=== PATIENT | male | born 1975 | race Asian ===

== ENCOUNTER 2016-08-31 05:30 | Inpatient (IN) | payer OTHER ==
[2016-08-28 11:27] VITALS: BMI 31.6
[2016-08-31] VITALS (20 sets, daily range): BP systolic 113–150; BP diastolic 58–86; PULSE 58–90; RESP 14–22; Ht 177.8 cm; Wt 100.3 kg
[~2016-08-31] VITALS: Ht 177.8 cm; Wt 100.3 kg
[~2016-08-31 05:30] MED LIST: CEFAZOLIN 2 GM/50 ML (PMX) 50 ML IVPB ONE; FAMO-18 PO; HYD25 PO; HYDR-3498 PO; LEVO100T87 PO; LOSA50TA6 PO; OXYC-281 PO; PANT40TA3 PO
[2016-08-31] MEDS ORDERED: GELATIN SIZE 100 SPONGE ONE (06:40)
[2016-08-31] MEDS ORDERED: BUPIVACAINE 0.25% (MPF) 30 ML INJ ONE (06:41)
[2016-08-31] MEDS ORDERED: THROMBIN 5000 UNIT VIAL ONE (06:41)
[2016-08-31] MEDS ORDERED: POLYMYXIN/BACITRACIN 1L IRRIG ONE (06:41)
[2016-08-31] MEDS ORDERED: LEVO125T75 PO (06:44)
--- NOTE | 2016-08-31 06:54 | HPN ---
Date/Time of Note Date/Time of Note DATE: 08/31/16 TIME: 06:54 Interval H&P Admission Note Pt. seen H&P reviewed: No system changes APOLONIA ARNDT MD August 31, 2016 06:54
[2016-08-31] MEDS ORDERED: BUPIVACAINE 0.25% (MPF) 10 ML 10 ML VIAL ONE (06:57)
[2016-08-31] MEDS ORDERED: ROCURONIUM 50 MG INJ ONE (07:05)
[2016-08-31] MEDS ORDERED: MIDAZOLAM 1 MG/ML 2 ML INJ ONE (07:05)
[2016-08-31] MEDS ORDERED: LIDOCAINE 2% (SDV) 5 ML INJ ONE (07:05)
[2016-08-31] MEDS ORDERED: PROPOFOL 20 ML ONE ×2 (07:05→07:46)
[2016-08-31] MEDS ORDERED: SUCCINYLCHOLINE CHLORIDE 100 MG/5 ML SYG IV ONE (07:05)
[2016-08-31] MEDS ORDERED: FAMOTIDINE 20 MG INJ ONE (07:46)
[2016-08-31] MEDS ORDERED: METOCLOPRAMIDE 10 MG INJ ONE (07:46)
[2016-08-31] MEDS ORDERED: ONDANSETRON 4 MG INJ ONE (07:46)
[2016-08-31] MEDS ORDERED: DEXAMETHASONE 4 MG/ML 1 ML INJ ONE (07:46)
[2016-08-31] MEDS ORDERED: HYDROmorphONE 2 MG/ML SYG ONE (07:48)
[2016-08-31] MEDS ORDERED: PHENYLephrine (100 MCG/ML) 5ML SYG ONE (07:53)
[2016-08-31] MEDS ORDERED: GLYCOPYRROLATE 0.4 MG INJ ONE ×2 (08:27)
[2016-08-31] MEDS ORDERED: NEOSTIGMINE 3 MG/3 ML SYRINGE ONE (08:27)
[2016-08-31] MEDS ORDERED: FENTAnyl 50 MCG/ML VIAL IV PRN ×3 (08:30)
[2016-08-31] MEDS ORDERED: DIPHENHYDRAMINE 50 MG INJ IV PRN (08:30)
[2016-08-31] MEDS ORDERED: HYDROmorphONE (0.2 MG/ML) 10ML SYG IV PRN ×3 (08:30)
[2016-08-31] MEDS ORDERED: PROCHLORPERAZINE 10 MG INJ IV PRN (08:30)
[2016-08-31] MEDS ORDERED: ONDANSETRON 4 MG INJ IV PRN ×2 (08:30→09:00)
[2016-08-31] MEDS ORDERED: MEPERIDINE 25 MG INJ IV PRN (08:30)
[2016-08-31] MEDS: LACTATED RINGER'S 1,000 ML IV* ONE ×2 (08:47)
--- NOTE | 2016-08-31 08:58 | OPR ---
Date/Time of Note Date/Time of Note DATE: 08/31/16 TIME: 08:54 Operative Report Preoperative Diagnosis Herniated lumbar disc L5-S1 on the right Postoperative Diagnosis Same Operation Performed Hemilaminotomy L5 on the right Microdiscectomy L5-S1 on the right Medial facetectomy and foraminotomy L5-S1 on the right Placement of umbilical cord tissue in the L5-S1 disc space Cosmetic wound closure (2.6 cm) Lateral localizing lumbar radiographs (2) Intraoperative nerve monitoring (60 minutes) Surgeon: APOLONIA ARNDT MD assistant front office manager: URBANO GREGG Anesthesia: general Anesthesiologist: INOCENTE LARA MD Estimated Blood Loss: minimal Specimens L5-S1 disc material Tubes/Drains 2 medium Hemovac drains employed Complications: None Pt Condition Post Procedure: stable Disposition: PACU Operative\Procedure Findings At surgery, a moderately severe extruded disc herniation at L5-S1 the right was confirmed APOLONIA ARNDT MD August 31, 2016 08:58
[2016-08-31] MEDS ORDERED: ACETAMINOPHEN 325 MG TAB PO PRN (09:00)
[2016-08-31] MEDS ORDERED: NACL 0.9% 3 ML SYG IV SCH (09:00)
[2016-08-31] MEDS ORDERED: DIPHENHYDRAMINE 50 MG CAP PO PRN (09:00)
[2016-08-31] MEDS ORDERED: HYDROmorphONE 0.2 MG/ML PCA IV SCH (09:00)
[2016-08-31] MEDS ORDERED: DIAZEPAM 5 MG/ML SYG IM PRN (09:00)
[2016-08-31] MEDS ORDERED: HYDROCODONE/APAP (5/325) TAB PO PRN ×2 (09:00)
[2016-08-31] MEDS ORDERED: BETHANECHOL 25 MG TAB PO PRN (09:00)
[2016-08-31] MEDS ORDERED: ZOLPIDEM 5 MG TAB PO PRN (09:00)
[2016-08-31] MEDS ORDERED: TRIMETHOBENZAMIDE 100 MG/ML VIAL IM PRN (09:00)
[2016-08-31] MEDS ORDERED: PROCHLORPERAZINE 10 MG TAB PO PRN (09:00)
[2016-08-31] MEDS ORDERED: NALOXONE (0.4 MG/ML) INJ IV PRN (09:00)
[2016-08-31] MEDS ORDERED: DIAZEPAM 5 MG TAB PO PRN (09:00)
[2016-08-31] MEDS ORDERED: AL HYDROX/MG HYDROX/SIMETH 30 ML CUP PO PRN (09:00)
--- NOTE | 2016-08-31 10:00 | RADRPT ---
PROCEDURE: Intraoperative XR. CLINICAL INDICATION: Intraoperative radiograph during L5-S1 microdiskectomy. TECHNIQUE: Spot intraoperative lateral lateral x-ray image was provided. The images were reviewed on a high-resolution PACS workstation. COMPARISON: None available FINDINGS: Spot intraoperative lateral lumbar view were provided during lumbar spine surgery. The images demon strate metallic probes at the level of L4-5 and L5-S1. There is moderate facet spondylosis L5-S1. IMPRESSION: 1. Spot intraoperative lateral lumbar view during L5-S1 microdiskectomy were provided. 2. Please see operative report of the same day for further information. RPTAT: DD .Kirill Mandel MD, MD Date Time Electronically viewed and signed by .Kirill Mandel MD, on 08/31/2016 09:59 .S/
--- NOTE | 2016-08-31 10:00 | RADRPT ---
PROCEDURE: Intraoperative XR. CLINICAL INDICATION: Intraoperative radiograph during L5-S1 microdiskectomy. TECHNIQUE: Spot intraoperative lateral lumbar x-ray image was provided. The images were reviewed on a high-resolution PACS workstation. COMPARISON: None available FINDINGS: Spot intraoperative lateral lumbar view were provided during L5-S1 microdiskectomy. The images demo nstrate without instrumentation at the level of L5-S1. IMPRESSION: 1. Spot intraoperative lateral lumbar view during L5-S1 microdiskectomy were provided. 2. Please see operative report of the same day for further information. RPTAT: DD .Kirill Mandel MD, Date Time Electronically viewed and signed by .Kirill Mandel MD, on 08/31/2016 10:00 .S/
[2016-08-31] MEDS: DEXTROSE 5%-0.45% NACL 1,000 ML IV SCH ×3 (10:25→20:37)
--- NOTE | 2016-08-31 12:05 | OPR ---
DATE OF OPERATION: 08/31/2016 PREOPERATIVE DIAGNOSIS: Herniated disk, L5-S1 on the right with extruded disk fragments. POSTOPERATIVE DIAGNOSIS: Herniated disk, L5-S1 on the right with extruded disk fragments. OPERATION PERFORMED: 1. Right hemilaminotomy, L5. 2. Microdiskectomy, L5-S1 on the right. 3. Medial facetectomy and foraminotomy, L5-S1 on the right. 4. Implantation of umbilical cord tissue in the L5-S1 disk space. 5. Cosmetic wound closure (2.6 cm). 6. Lateral localized lumbar radiographs (2). 7. Intraoperative nerve monitoring (60 minutes). SURGEON: Bar Sadler MD HAIR TINTER: CHANG Garcia ANESTHESIA: General endotracheal. ANESTHESIOLOGIST: Monica Parrish MD ESTIMATED BLOOD LOSS: 10 mL, none replaced. DRAINS: Two medium Hemovac drains employed. COMPLICATIONS: None. PERTINENT HISTORY AND PHYSICAL: This is a 40-year-old male who has had persistent pain in his back and right leg since February 2016. He has undergone a number of diagnostic studies including an MRI of the lumbar spine which demonstrated disk herniation, L5-S1 on the right with extruded disk fragme nts. Treatment options were discussed with the patient, who elected to proceed with surgery. OPERATIVE FINDINGS AT SURGERY: A large extruded disk herniation at L5-S1 on the right was confirmed . Baseline intraoperative nerve monitoring revealed a decrease in the right S1 potential of 40%. T his returned to normal at the completion of the surgery. OPERATIVE PROCEDURE: With the patient in supine position after satisfactory induction of general en dotracheal anesthesia by Dr. Parrish, the patient was turned to the prone kneeling position over the [facility] frame. All pressure points were carefully padded. Back was prepped and draped in the usual sterile fashion. Athrombic pumps were applied to the legs below the knees to prevent venous stasis during and after the procedure. Two spinal needles were placed next to what was felt to be the L4 a nd L5 spinous processes, lateral roentgenogram was taken which confirmed anatomic localization. A 2 .6 cm incision then carried out midline over the spinous process of L5 through skin and subcutaneous tissue to the deep fascia after skin was infiltrated with 0.25% Marcaine without epinephrine for po stoperative analgesia. Superficial retractors were placed and hemostasis was secured with electroca utery. The fascia was incised in midline with a hot knife and unilateral subperiosteal dissection c arried out at L5-S1 on the right. Deep retractors were placed and deep hemostasis secured with elec trocautery. A second intraoperative radiograph was taken with deep retractor at what was felt to be the L5-S1 interspace, and this was confirmed with second x-ray. A right hemilaminotomy at L5 was t hen carried out using Leksell rongeur, Kerrison punches, and curettes. The ligamentum flavum was ex cised with sharp dissection. The operating microscope was moved into place. A medial facetectomy a nd foraminotomy was then accomplished at L5-S1 on the right using small hand osteotome, mallet, Fatima dilan punches, and curettes. The S1 root was then mobilized medially and protected with Queenie ner ve retractor using microdissection technique. This revealed a large extruded disk herniation at L5- S1 on the right which had migrated through the annulus and posterior longitudinal ligament. A 15 bl portia knife used to cut a rectangular window in the annulus and posterior longitudinal ligament and mu ltiple degenerative disk fragments were harvested with pituitary rongeurs and sent to laboratory for pathologic study. Additional fragments were harvested using Ay curettes. A thorough search o f the floor of the canal was made with an arthroscopic probe. No additional fragments were encounte red. At this point, a 1.5 cm sq piece of the umbilical cord tissue was placed into the disk space t o reduce the frequency of recurrent disk herniations. The wound was then closed in layers over 2 me dium Hemovac drains, one below the fascia, one above the fascia using #1 Vicryl [id number] appr oximating sutures in deep paralumbar musculature and deep fascia of back, 2-0 Vicryl subcutaneous ap proximating sutures in subQ tissue, and a 4-0 Vicryl subcuticular cosmetic closing suture on the ski n. Prior to wound closure, a thorough antibacterial irrigating solution used to copiously irrigate the wound. The anesthesiologist also asked to perform a Valsalva maneuver at 40 mmHg prior wound cl osure. No CSF leak was noted. Sterile compressive dressings were applied. The patient having tole rated procedure well, was then turned to supine position onto his bed and extubated by Dr. Monica Hdz i. The patient was transported to the recovery room in satisfactory condition. At the conclusion o f the procedure, sponge, instrument, and needle counts were all correct. NEED FOR BOX INSPECTOR: During this spinal surgical procedure, my content assistant was used to retrac t and protect the spinal nerves and dural sac. My content assistant also employed the suction catheters to e vacuate blood from the surgical field to improve visualization of the neural structures. The assista nt was medically necessary to facilitate the completion of the surgery in a safe and expeditious man ner. State of [place] regulations, as well as hospital bylaws, preclude the use of non-licensed [facility] care personnel such as operating room technicians, to perform these functions. Throughout the procedure, neural monitoring was carried out by [employer] including EMG, SSEP, and MEP monitoring of the L2, L3, L4, L5, and S1 nerve roots bilaterally along with spinal cord potentials. These were interpreted by a neurologist employed by [employer] Dictated By: BAR SADLER MD TM/NTS Conf#: [id number] DID#: [id number] CC: AMBER PARKS MD;*EndCC*
[2016-08-31] MEDS: CEFAZOLIN 1 GM/50 ML (PMX) 50 ML IVPB SCH ×3 (12:30→22:50)
--- NOTE | 2016-08-31 19:30 | PREOPHP ---
DATE OF ADMISSION: 08/31/2016 TYPE OF CONSULTATION: Medical. Thank you, Dr. Arndt, for asking me to participate in medical management of this patient. REASON FOR CONSULTATION: To manage the patient's hypertension and hypothyroidism. HISTORY OF PRESENT ILLNESS: This 40-year-old man is now postop a lumbar spine surgery. The patient was having pain in his low back that was radiating down his right leg. The patient failed medical therapy. He decided to undergo surgery. The patient had surgery today by Dr. Arndt, which inclu ded a right hemilaminectomy at L5 and microdiskectomy at L5-S1 on the right. The patient was diagno sed as having a herniated disk at the L5-S1 level on the right with extruded disk fragments. The pa tient says that the pain in his right leg has resolved. He is having some manageable low back incis ional pain. The patient denies any chest pain or shortness of breath. PAST MEDICAL HISTORY: Remarkable for hypertension, hypothyroidism, gastroesophageal reflux disease. PAST SURGICAL HISTORY: The patient has no known surgical history. FAMILY HISTORY: Father has diabetes; mother, hypertension. MEDICATIONS: Include: 1. Hydrochlorothiazide 25 mg a day. 2. Levothyroxine 150 mg once a day. 3. Losartan 50 mg a day. ALLERGIES: HE HAS NO KNOWN DRUG ALLERGIES. 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 He denies drinking alcohol. He does n ot smoke cigarettes or use recreational drugs. PHYSICAL EXAMINATION: GENERAL: At this time, reveals a well-developed man in no apparent distress. VITAL SIGNS: Temperature 98.3, pulse 69, respirations 16, blood pressure 122/73, O2 saturation 99% on 2 liter nasal cannula. HEENT: Head normocephalic. Eyes: Extraocular muscles intact. NOSE AND MOUTH: Normal. NECK: Supple. No neck vein distention. LUNGS: Clear to auscultation. HEART: Regular rhythm. No murmurs, gallops, or rubs. ABDOMEN: Soft, nontender. EXTREMITIES: No peripheral edema. IMPRESSION: The patient is now postop a lumbar spine surgery. He is feeling well. He denies any c hest pain or shortness of breath. The patient's blood pressure is well controlled at this time. I will manage the patient's hypertension, hypothyroidism, and gastroesophageal reflux disease. PLAN: 1. Resume some routine medications. 2. Check labs in the morning. 3. Postop lumbar spine surgery protocol. 4. I will follow the patient along with you. Dictated By: AMBER PARKS MD, ND/ARIS Conf#: [id number] DID#: [id number] CC: APOLONIA ARNDT MD;*EndCC*
[2016-08-31] MEDS: RANITIDINE 150 MG TAB PO SCH (20:28)
[2016-08-31] MEDS: CEPASTAT LOZENGE MT PRN (22:47)
[2016-09-01 00:20] VITALS: BP 116/70; RESP 20
[2016-09-01] MEDS: CEFAZOLIN 1 GM/50 ML (PMX) 50 ML IVPB SCH (05:21)
[2016-09-01] MEDS: CEPASTAT LOZENGE MT PRN (05:21)
[2016-09-01 05:40] VITALS: BP 132/82; PULSE 65; RESP 18
[2016-09-01 05:48] LABS: HEMATOCRIT 41.6 % (42.0-52.0); HEMOGLOBIN 13.3 g/dl (14.0-18.0)
[2016-09-01] MEDS ORDERED: PANTOPRAZOLE (EC) 40 MG TAB PO SCH (06:00)
[2016-09-01 06:05] LABS: CALCIUM 8.4 mg/dl (8.4-10.2); CREATININE 0.7 mg/dl (0.61-1.24); POTASSIUM 3.2 mmol/L (3.5-5.1)
[2016-09-01] MEDS ORDERED: LEVOTHYROXINE 125 MCG TAB PO SCH (07:00)
--- NOTE | 2016-09-01 07:16 | PN ---
Date/Time of Note Date/Time of Note DATE: 09/01/16 TIME: 07:15 Assessment/Plan Lines/Catheters IV [facility] (from [facility]): Peripheral IV Subjective 24 Hr Interval Summary The patient is postop day #1 following a microdiscectomy at L5-S1 on the right. He is resting comfortably. His preoperative radiculopathy is gone. He is afebrile his morning lab work shows a hypokalemia of 3.2 neurovascular structures are intact distally. His Hemovac had minimal drainage and was discontinued. I anticipate that he will be cleared for discharge by physical therapy later today. He has been given strict discharge precautions and instructions. We will see him in the office in 1-2 weeks. Exam/Review of Systems Vital Signs Vitals Vital Signs Date Time Temp Pulse Resp B/P Pulse Ox O2 Delivery O2 Flow Rate FiO2 09/01/16 05:40 18 09/01/16 05:40 98.2 65 132/82 99 Nasal Cannula 2.0 Intake and Output 08/31/16 08/31/16 09/01/16 15:00 23:00 07:00 Intake Total 1450 ml 2200 ml 1900 ml Output Total 35 ml 410 ml 1800 ml Balance 1415 ml 1790 ml 100 ml Results Result Diagram: 09/01/16 0440 09/01/16 0440 APOLONIA ARNDT MD September 01, 2016 07:16
[2016-09-01] MEDS ORDERED: BETHANECHOL 25 MG TAB PO PRN (08:00)
[2016-09-01 08:20] VITALS: BP 116/80; RESP 20
[2016-09-01] MEDS ORDERED: POTASSIUM CHLORIDE (SR) 20 MEQ TAB PO STA (08:25)
--- NOTE | 2016-09-01 08:30 | CONS ---
Date/Time of Note Date/Time of Note DATE: 09/01/16 TIME: 08:26 Assessment/Plan Assessment/Plan Chief Complaint/Hosp Course 1. He is 1 day post op a lumbar spine surgery . He is doing well . 2. replace potassium 3. continue current medication and PT . Problems: Consultation Date/Type/Reason Admit Date/Time August 31, 2016 at 05:30 Initial Consult Date Type of Consultation: medicine 24 HR Interval Summary Free Text/Dictation He is 1 day post op a lumbar spine surgery . No complaints . Constitutional: improved, no complaints Exam/Review of Systems Vital Signs Vitals Vital Signs Date Time Temp Pulse Resp B/P Pulse Ox O2 Delivery O2 Flow Rate FiO2 09/01/16 08:20 97.8 64 20 116/80 100 09/01/16 05:40 Nasal Cannula 2.0 Intake and Output 08/31/16 08/31/16 09/01/16 15:00 23:00 07:00 Intake Total 1450 ml 2200 ml 1900 ml Output Total 35 ml 410 ml 1800 ml Balance 1415 ml 1790 ml 100 ml Exam Constitutional: alert, oriented, well developed Respiratory: clear to auscultation, normal air movement Cardiovascular: regular rate and rhythm Gastrointestinal: soft Musculoskeletal: nl extremities to inspection Results Result Diagram: 09/01/16 0440 09/01/16 0440 Results 24 hrs Laboratory Tests Test 09/01/16 04:40 Hemoglobin 13.3 L Hematocrit 41.6 L Sodium Level 138 Potassium Level 3.2 L Chloride Level 103 Carbon Dioxide Level 30 Anion Gap 8 Blood Urea Nitrogen 9 Creatinine 0.70 Glucose Level 107 Calcium Level 8.4 Medications Medications Current Medications Dextrose/Sodium Chloride (D5-1/2ns) 1,000 ml @ 100 mls/hr Q10H IV Last administered on 08/31/16t 20:37; Admin Dose 100 MLS/HR; Start 08/31/16 at 08:50 Acetaminophen/ Hydrocodone Bitart ([place] (5/325)) 1 tab Q4H PRN PO PAIN LEVEL 1 -5; Start 08/31/16 at 09:00 Acetaminophen/ Hydrocodone Bitart ([place] (5/325)) 2 tab Q4H PRN PO PAIN LEVEL 6 -10; Start 08/31/16 at 09:00 Zolpidem Tartrate (Ambien) 5 mg HS PRN PO INSOMNIA; Start 08/31/16 at 09:00 Prochlorperazine (Compazine) 10 mg Q4H PRN PO NAUSEA AND/OR VOMITING; Start 08/31/16 at 09:00 Trimethobenzamide HCl (Tigan) 200 mg Q4H PRN IM NAUSEA AND/OR VOMITING; Start 08/31/16 at 09:00 Ondansetron HCl (Zofran Inj) 4 mg Q6H PRN IV NAUSEA AND/OR VOMITING; Start 08/31 at 09:00 Al Hydrox/Mg Hydrox/Simethicone (Mag-Al Plus) 15 ml Q4H PRN PO CONSTIPATION; Start 08/31/16 at 09:00 Docusate Sodium (Colace) 100 mg BID PO ; Start 09/01/16 at 09:00 Acetaminophen (Tylenol Tab) 650 mg Q4H PRN PO TEMP GREATER THAN 101F OR ALVAREZ; Start 08/31/16 at 09:00 Ascorbic Acid (Vitamin C) 1,000 mg BID PO ; Start 09/01/16 at 09:00 Ferrous Sulfate (Ferrous Sulfate (Ec)) 325 mg TID PO ; Start 09/01/16 at 09:00 Ranitidine HCl (Zantac) 150 mg BID PO Last administered on 08/31/16 20:28; Admin Dose 150 MG; Start 08/31/16 at 21:00 Diazepam (Valium) 5 mg Q4H PRN PO MUSCLE SPASMS; Start 08/31/16 at 09:00 Diazepam (Valium) 5 mg Q4H PRN IM MUSCLE SPASMS; Start 08/31/16 at 09:00 Phenol (Cepastat Lozenge) 1 lozenge PRN PRN MT SORE THROAT Last administered on 09/01/16 05:21; Admin Dose 1 LOZENGE; Start 08/31/16 at 09:00 Bethanechol Chloride (Urecholine) 25 mg PRN PRN PO UNABLE TO VOID; Start at 09:00 Diphenhydramine HCl (Benadryl) 50 mg Q6H PRN PO PRURITUS; Start 08/31/16 at 09: 00 Hydromorphone HCl (Dilaudid SHIP DESIGN TEACHER) Q4PCA IV Last administered on 08/31/16 09:09 ; Admin Dose 6 MG; Start 08/31/16 at 09:00 Naloxone HCl (Narcan) 0.2 mg Q2M PRN IV RR 8 BREATHS/MIN OR LESS; Start at 09:00 Losartan Potassium (Cozaar) 50 mg DAILY PO ; Start 09/01/16 at 09:00 Pantoprazole (Protonix Tab) 40 mg DAILY@06 PO Last administered on 09/01/16t 05: 21; Admin Dose 40 MG; Start 09/01/16 at 06:00 Bethanechol Chloride (Urecholine) 25 mg PRN PRN PO UNABLE TO VOID; Start at 08:00 AMBER PARKS MD September 01, 2016 08:30
[2016-09-01] MEDS: FERROUS SULFATE (EC) 325 MG TAB PO SCH ×2 (08:34→13:28)
[2016-09-01] MEDS: RANITIDINE 150 MG TAB PO SCH (08:34)
[2016-09-01] MEDS ORDERED: ASCORBIC ACID 500 MG TAB PO SCH (09:00)
[2016-09-01] MEDS ORDERED: LOSARTAN 50 MG TAB PO SCH (09:00)
[2016-09-01] MEDS ORDERED: DOCUSATE SODIUM 100 MG CAP PO SCH (09:00)
[2016-09-01] MEDS: DEXTROSE 5%-0.45% NACL 1,000 ML IV SCH (13:25)
== END 2016-09-01 18:30 | disposition home or self-care (01) | DRG 520 ==
LOC: REC 05:30 → EDSTATUS 07:00 → MS1 09:57
PROVIDERS: ADMIT Orthopaedic Surgery; ATTEND Orthopaedic Surgery
PROC: 0SU Lower Joints, Supplement (ICD-10-PCS; 2016-08-31)
PROC: 4A1104G Monitoring of Peripheral Nervous Electrical Activity, Intraoperative, Open Approach (ICD-10-PCS; 2016-08-31)
PROC: 0SB40ZZ Excision of Lumbosacral Disc, Open Approach (ICD-10-PCS; principal; 2016-08-31 07:00)
DX: M51.17 Intervertebral disc disorders with radiculopathy, lumbosacral region (principal); I10 Essential (primary) hypertension; E87.6 Hypokalemia; K21.9 Gastro-esophageal reflux disease without esophagitis; E03.9 Hypothyroidism, unspecified; E66.9 Obesity, unspecified; Z68.31 Body mass index [BMI] 31.0-31.9, adult
CPT/HCPCS: 72020; 80048; 85014; 85018; 86850; 86900; 86901; 86920; 97116; 97162; 97530; J0330; J0690; J1100; J1170; J2250; J2370; J2405; J2710; J2765; J3010; J7042; J7120